=== PATIENT | female | born 1930 | race Caucasian/White ===

== ENCOUNTER 2016-04-26 12:39 | Day surgery (SDC) | payer MEDICARE, BC ==
[~2016-04-26 12:39] MED LIST: ALPRAZOLAM ER0.5 MG PO; CALCIUM 600 +1 EAC1 PO; CEFTIN250 MG PO; CHLORASEPTI PO; CIPRO250 MG PO; COLACE100 MG PO; COMPAZINE10 MG PO; COREG12.5 MG PO; COZAAR100 MG PO; DEEP SEA44 ML NASBOTH; EVISTA60 MG PO; FIORICET1 TAB PO; FLONASE16 GM NASBOTH; HALDOL1 MG PO; HEALTHYLAX17 GM PO; HYDROCODON-ACE1 EAC4 PO; IMITREX25 MG PO; KLOR-CON M1010 MEQ PO; LAMICTAL200 MG PO; LEVAQUIN750 MG PO; LOVENOX40 MG/0.4 SUBCUT; MAG-AL PLUS XS30 ML PO; MILK OF MAGNESI30 ML PO; MUCINEX600 MG PO; NORCO 325-5 MG1 TAB PO; NYSTOP15 GM TOP; PRAVACHOL80 MG PO; PRILOSEC20 MG PO; PRILOSEC40 MG PO; PROTONIX40 MG PO; PROVENTIL2.5 MG/3 M INH; REFRESH CELLUV1 EACH EYEBOTH; REFRESH TEARS15 ML EYEBOTH; REGLAN10 MG PO; TOVIAZ8 MG PO; TRAMADOL HCL50 MG PO; TRANSDERM-SCOP1.5 MG TOP; TRAZODONE HCL100 MG PO; TYLENOL ARTHRI650 MG PO; TYLENOL PM EX-1 EACH PO; TYLENOL325 MG PO; TYLENOL500 MG PO; ULTRAM50 MG PO; UNISOM SLEEP AI25 MG PO; VALSARTAN-HCTZ1 EACH PO; VITAMIN B-1100 MG PO; ZOFRAN ODT8 M1 PO; ZOFRAN8 MG PO
== END 2016-04-26 14:10 | disposition short-term general hospital (02) ==
LOC: SURGOP 12:39
PROC: 0TJB8ZZ Inspection of Bladder, Via Natural or Artificial Opening Endoscopic (ICD-10-PCS; principal; 2016-04-26)
DX: Z08 Encounter for follow-up examination after completed treatment for malignant neoplasm (principal); Z85.51 Personal history of malignant neoplasm of bladder

== ENCOUNTER 2016-08-08 11:15 | Day surgery (SDC) | payer MEDICARE, BC ==
[~2016-08-08] VITALS: Ht 158.8 cm; Wt 59.4 kg
== END 2016-08-08 16:00 | disposition short-term general hospital (02) ==
LOC: SURGOP 11:15
PROC: 08RK3JZ Replacement of Left Lens with Synthetic Substitute, Percutaneous Approach (ICD-10-PCS; principal; 2016-08-08)
DX: H26.9 Unspecified cataract (principal); M54.5 Low back pain; G89.29 Other chronic pain; G43.709 Chronic migraine without aura, not intractable, without status migrainosus; E78.5 Hyperlipidemia, unspecified; I10 Essential (primary) hypertension; F41.9 Anxiety disorder, unspecified; K21.9 Gastro-esophageal reflux disease without esophagitis; R73.09 Other abnormal glucose; Z96.1 Presence of intraocular lens; Z88.1 Allergy status to other antibiotic agents; Z88.6 Allergy status to analgesic agent; Z88.0 Allergy status to penicillin; Z79.891 Long term (current) use of opiate analgesic; Z79.899 Other long term (current) drug therapy
CPT/HCPCS: J0171; J3473; V2632